=== PATIENT | female | born 1945 | race Caucasian/White ===

== ENCOUNTER 2018-12-03 13:41 | Outpatient (CLI) | payer MEDICARE | END 2018-12-03 23:59 | disposition home or self-care (01) | LOC: CARD 13:41 | PROVIDERS: ATTEND Internal Medicine Critical Care Medicine | DX: M35.02 Sjogren syndrome with lung involvement (principal); Z88.1 Allergy status to other antibiotic agents | CPT/HCPCS: 94060; 94726; 94729 ==

== ENCOUNTER 2019-03-05 16:16 | Inpatient (IN) | payer MEDICARE ==
[~2019-03-05] VITALS: Ht 144.8 cm; Wt 52.9 kg
--- NOTE | 2019-03-05 16:40 | NUR ---
FIRST CONTACT WITH PT. PT C/O "NON HEALING WOUND ON LEFT DE SOUZA". PT REPORTS CULTURE IS "STAPH", STATES "NOT MRSA". PT WAS BEING TRX'D BY [facility]. PT SENT BY PCP. PT HAS HX OF CHOGRIN'S AND HAS BEEN TREATED WITH STEROIDS FOR A LONG TIME. PT'S AOX4. RESPS EVEN AND UNLABORED. BP/SPO2 MONITORS IN PLACE. CALL LIGHT WITHIN REACH.
[2019-03-05 17:29] LABS: BASOPHILS # (AUTO) 0.01 x10^3/uL (0-0.1); BASOPHILS % (AUTO) 0 % (0-1); EOSINOPHILS # (AUTO) 0.01 x10^3/uL (0-0.4); EOSINOPHILS % (AUTO) 0 % (1-7); LYMPHOCYTES # (AUTO) 0.54 x10^3/uL (1-3.4); LYMPHOCYTES % (AUTO) 13 % (22-44); MD NO; MEAN CORPUSCULAR HEMOGLOBIN 33.8 pg (27.0-34.8); MEAN CORPUSCULAR HGB CONC 33.5 g/dL (32.4-35.8); MEAN CORPUSCULAR VOLUME 100.8 fL (80-100); MEAN PLATELET VOLUME 6.7 fL (7.4-10.4); MONOCYTES # (AUTO) 0.65 x10^3/uL (0.2-0.8); MONOCYTES % (AUTO) 16 % (2-9); NEUTROPHILS # (AUTO) 2.95 x10^3/uL (1.8-6.8); NEUTROPHILS % (AUTO) 71 % (42-75); PLATELET COUNT 320 x10^3/uL (130-400); RED BLOOD COUNT 3.78 x10^6/uL (3.82-5.3); RED CELL DISTRIBUTION WIDTH 13.3 % (9.6-15.2)
[2019-03-05] MEDS ORDERED: VANCOMYCIN PMX 1GM/200ML 200 ML IV ONE (17:30)
[2019-03-05] MEDS ORDERED: VANCOMYCIN PER PHARMACY MC ONE (17:30)
--- NOTE | 2019-03-05 17:30 | NUR ---
EDMD OK'D TO GIVE SOME WATER. WATER GIVEN AT THIS TIME.
--- NOTE | 2019-03-05 17:35 | NUR ---
TASK RN: OCTAVIO INITIATED. NO BC OKAY PER ERP.
[2019-03-05 17:36] LABS: ALBUMIN 3.7 g/dL (3.4-5.0); ANION GAP 9 mmol/L (5-15); CALCIUM 8.8 mg/dL (8.5-10.1); CHLORIDE 104 mmol/L (98-107); CREATININE 0.73 mg/dL (0.55-1.02)
--- NOTE | 2019-03-05 17:43 | NUR ---
WARM BLANKET GIVEN AT THIS TIME. VANCO INFUSING AT THIS TIME.
--- NOTE | 2019-03-05 18:23 | NUR ---
HOSPITALIST AT BEDSIDE TO EVALUATE AT THIS TIME.
--- NOTE | 2019-03-05 18:47 | NUR ---
report given to zaina sheppard. all qeustions answered.
[2019-03-05] MEDS ORDERED: PRED5POW8 PO (18:52)
[2019-03-05] MEDS ORDERED: AZAT50TA9 PO (18:53)
[2019-03-05] MEDS ORDERED: SULF1TAB23 PO (18:54)
[2019-03-05] MEDS ORDERED: OXYC5CAP2 PO (18:55)
[2019-03-05] MEDS ORDERED: POLYETHYLENE GLYCOL 17 GM PACKET PO PRN (19:00)
[2019-03-05] MEDS ORDERED: ONDANSETRON ODT 4 MG PO PRN (19:00)
[2019-03-05] MEDS ORDERED: ACETAMINOPHEN 325 MG TABLET PO PRN (19:00)
[2019-03-05] MEDS ORDERED: VANCOMYCIN PER PHARMACY MC PRN (19:00)
[2019-03-05] MEDS ORDERED: BISACODYL 10 MG SUPP PR PRN (19:00)
[2019-03-05] MEDS ORDERED: PHARMACOKINETIC MONITORING MC PRN (19:30)
[2019-03-05 20:30] VITALS: BP 118/75
[2019-03-05] MEDS: HEPARIN 5,000 UNITS/ML, 1ML SQ SCH (22:15)
[2019-03-05] MEDS: OXYcodone/APAP 5/325MG TABLET PO PRN (22:30)
[2019-03-05 22:33] VITALS: BP 118/75
[2019-03-05] MEDS ORDERED: FLUCONAZOLE 100 MG TABLET PO ONE (23:30)
[2019-03-06 03:14] VITALS: BP 118/69
[2019-03-06] MEDS: OXYcodone/APAP 5/325MG TABLET PO PRN ×5 (04:29→21:59)
[2019-03-06 04:53] LABS: BASOPHILS # (AUTO) 0.01 x10^3/uL (0-0.1); BASOPHILS % (AUTO) 1 % (0-1); EOSINOPHILS # (AUTO) 0.03 x10^3/uL (0-0.4); EOSINOPHILS % (AUTO) 1 % (1-7); LYMPHOCYTES # (AUTO) 0.68 x10^3/uL (1-3.4); LYMPHOCYTES % (AUTO) 22 % (22-44); MD NO; MEAN CORPUSCULAR HEMOGLOBIN 33.6 pg (27.0-34.8); MEAN CORPUSCULAR HGB CONC 33.6 g/dL (32.4-35.8); MEAN PLATELET VOLUME 6.7 fL (7.4-10.4); MONOCYTES # (AUTO) 0.51 x10^3/uL (0.2-0.8); MONOCYTES % (AUTO) 17 % (2-9); NEUTROPHILS # (AUTO) 1.82 x10^3/uL (1.8-6.8); NEUTROPHILS % (AUTO) 59 % (42-75); PLATELET COUNT 282 x10^3/uL (130-400); RED BLOOD COUNT 3.47 x10^6/uL (3.82-5.3); RED CELL DISTRIBUTION WIDTH 13.4 % (9.6-15.2)
[2019-03-06 05:00] LABS: ALBUMIN 3.2 g/dL (3.4-5.0); ANION GAP 5 mmol/L (5-15); CALCIUM 8.6 mg/dL (8.5-10.1); CHLORIDE 106 mmol/L (98-107)
[2019-03-06 05:04] LABS: ALANINE AMINOTRANSFERASE 20 U/L (12-78); ALKALINE PHOSPHATASE 93 U/L (45-117); BILIRUBIN,TOTAL 0.2 mg/dL (0.2-1.0); CREATININE 0.63 mg/dL (0.55-1.02); TOTAL PROTEIN 6.5 g/dL (6.4-8.2)
[2019-03-06] MEDS: HEPARIN 5,000 UNITS/ML, 1ML SQ SCH ×3 (05:56→22:02)
[2019-03-06] MEDS ORDERED: GADOTERATE 7.5 MMOL/15 ML SYR ONE (08:18)
[2019-03-06] MEDS ORDERED: SULF-169 PO (08:38)
[2019-03-06] MEDS ORDERED: DOXY100T PO (08:38)
[2019-03-06] MEDS ORDERED: PRED1TAB19 PO (08:38)
[2019-03-06] MEDS: SENNA/DOCUSATE TABLET PO SCH (08:39)
[2019-03-06 08:42] VITALS: BP 111/82
[2019-03-06 14:12] VITALS: BP 108/72
[2019-03-06] MEDS: VANCOMYCIN PMX 1GM/200ML 200 ML IV SCH (16:26)
[2019-03-06 19:46] VITALS: BP 111/70
[2019-03-06] MEDS: AZATHIOPRINE 50 MG TABLET PO SCH (20:59)
[2019-03-06] MEDS: DOXYCYCLINE 100MG TABLET PO SCH (20:59)
[2019-03-07 01:45] VITALS: BP 105/67
[2019-03-07 05:26] LABS: BASOPHILS # (AUTO) 0.02 x10^3/uL (0-0.1); BASOPHILS % (AUTO) 0 % (0-1); EOSINOPHILS # (AUTO) 0.05 x10^3/uL (0-0.4); EOSINOPHILS % (AUTO) 1 % (1-7); LYMPHOCYTES # (AUTO) 0.75 x10^3/uL (1-3.4); LYMPHOCYTES % (AUTO) 21 % (22-44); MD NO; MEAN CORPUSCULAR HEMOGLOBIN 33.8 pg (27.0-34.8); MEAN CORPUSCULAR HGB CONC 33.7 g/dL (32.4-35.8); MEAN CORPUSCULAR VOLUME 100.3 fL (80-100); MEAN PLATELET VOLUME 6.7 fL (7.4-10.4); MONOCYTES # (AUTO) 0.58 x10^3/uL (0.2-0.8); MONOCYTES % (AUTO) 16 % (2-9); NEUTROPHILS # (AUTO) 2.28 x10^3/uL (1.8-6.8); NEUTROPHILS % (AUTO) 62 % (42-75); PLATELET COUNT 298 x10^3/uL (130-400); RED BLOOD COUNT 3.78 x10^6/uL (3.82-5.3); RED CELL DISTRIBUTION WIDTH 13.3 % (9.6-15.2)
[2019-03-07 05:37] LABS: ANION GAP 8 mmol/L (5-15); CALCIUM 8.8 mg/dL (8.5-10.1); CHLORIDE 104 mmol/L (98-107)
[2019-03-07 05:47] LABS: CREATININE 0.69 mg/dL (0.55-1.02)
[2019-03-07] MEDS: HEPARIN 5,000 UNITS/ML, 1ML SQ SCH ×4 (06:09→22:06)
[2019-03-07 06:20] VITALS: BP 116/75
[2019-03-07] MEDS: OXYcodone/APAP 5/325MG TABLET PO PRN ×3 (06:23→16:42)
[2019-03-07] MEDS: AZATHIOPRINE 50 MG TABLET PO SCH ×2 (10:12→20:08)
[2019-03-07] MEDS: DOXYCYCLINE 100MG TABLET PO SCH (10:12)
[2019-03-07] MEDS: SENNA/DOCUSATE TABLET PO SCH (10:13)
[2019-03-07 13:13] VITALS: BP 122/75
[2019-03-07] MEDS: VANCOMYCIN PMX 1GM/200ML 200 ML IV SCH (17:33)
[2019-03-07] MEDS: SULFAMETH./TRIMETHOPRIM DS 800MG/160MG TABLET PO SCH (17:33)
[2019-03-07 19:16] VITALS: BP 102/62
[2019-03-07] MEDS: OXYcodone IR 5MG TABLET PO PRN (22:06)
[2019-03-08 02:00] VITALS: BP 118/76
[2019-03-08] MEDS: OXYcodone IR 5MG TABLET PO PRN ×2 (03:13→12:25)
[2019-03-08 05:15] LABS: BASOPHILS # (AUTO) 0.03 x10^3/uL (0-0.1); BASOPHILS % (AUTO) 1 % (0-1); EOSINOPHILS # (AUTO) 0.05 x10^3/uL (0-0.4); EOSINOPHILS % (AUTO) 1 % (1-7); LYMPHOCYTES # (AUTO) 0.63 x10^3/uL (1-3.4); LYMPHOCYTES % (AUTO) 17 % (22-44); MD NO; MEAN CORPUSCULAR HEMOGLOBIN 33.3 pg (27.0-34.8); MEAN CORPUSCULAR HGB CONC 33.3 g/dL (32.4-35.8); MEAN PLATELET VOLUME 6.7 fL (7.4-10.4); MONOCYTES # (AUTO) 0.56 x10^3/uL (0.2-0.8); MONOCYTES % (AUTO) 15 % (2-9); NEUTROPHILS # (AUTO) 2.43 x10^3/uL (1.8-6.8); NEUTROPHILS % (AUTO) 66 % (42-75); PLATELET COUNT 285 x10^3/uL (130-400); RED BLOOD COUNT 3.64 x10^6/uL (3.82-5.3); RED CELL DISTRIBUTION WIDTH 13.2 % (9.6-15.2)
[2019-03-08 05:26] LABS: ANION GAP 7 mmol/L (5-15); CALCIUM 8.6 mg/dL (8.5-10.1); CHLORIDE 104 mmol/L (98-107)
[2019-03-08 05:28] LABS: CREATININE 0.63 mg/dL (0.55-1.02)
[2019-03-08] MEDS: HEPARIN 5,000 UNITS/ML, 1ML SQ SCH ×2 (05:52→20:14)
[2019-03-08 08:00] VITALS: BP 127/84
[2019-03-08] MEDS: AZATHIOPRINE 50 MG TABLET PO SCH ×2 (09:47→20:14)
[2019-03-08] MEDS: SENNA/DOCUSATE TABLET PO SCH (09:47)
[2019-03-08 13:30] VITALS: BP 121/76
[2019-03-08] MEDS: VANCOMYCIN PMX 1GM/200ML 200 ML IV SCH (17:48)
[2019-03-08] MEDS: OXYcodone/APAP 5/325MG TABLET PO PRN (20:14)
[2019-03-08 20:44] VITALS: BP 126/79
[2019-03-09 03:59] VITALS: BP 136/79
[2019-03-09] MEDS: HEPARIN 5,000 UNITS/ML, 1ML SQ SCH ×3 (05:57→21:16)
[2019-03-09 06:46] VITALS: BP 112/56
[2019-03-09] MEDS: SULFAMETH./TRIMETHOPRIM DS 800MG/160MG TABLET PO SCH (08:41)
[2019-03-09] MEDS: AZATHIOPRINE 50 MG TABLET PO SCH ×2 (08:41→21:16)
[2019-03-09] MEDS: SENNA/DOCUSATE TABLET PO SCH (08:42)
[2019-03-09] MEDS: VANCOMYCIN PMX 1GM/200ML 200 ML IV SCH (12:00)
[2019-03-09] MEDS: OXYcodone IR 5MG TABLET PO PRN ×2 (13:54→21:16)
[2019-03-09 14:00] VITALS: BP 134/67
[2019-03-09 19:37] VITALS: BP 110/75
[2019-03-10 01:24] VITALS: BP 130/80
[2019-03-10] MEDS: HEPARIN 5,000 UNITS/ML, 1ML SQ SCH ×3 (05:57→22:55)
[2019-03-10] MEDS: VANCOMYCIN PMX 1GM/200ML 200 ML IV SCH (05:57)
[2019-03-10 08:00] VITALS: BP 107/70
[2019-03-10] MEDS: SENNA/DOCUSATE TABLET PO SCH (08:59)
[2019-03-10] MEDS: AZATHIOPRINE 50 MG TABLET PO SCH ×2 (08:59→20:13)
[2019-03-10] MEDS: OXYcodone/APAP 5/325MG TABLET PO PRN ×3 (08:59→20:13)
[2019-03-10 11:23] LABS: BASOPHILS # (AUTO) 0.02 x10^3/uL (0-0.1); BASOPHILS % (AUTO) 0 % (0-1); EOSINOPHILS # (AUTO) 0.03 x10^3/uL (0-0.4); EOSINOPHILS % (AUTO) 1 % (1-7); LYMPHOCYTES # (AUTO) 0.62 x10^3/uL (1-3.4); LYMPHOCYTES % (AUTO) 12 % (22-44); MD NO; MEAN CORPUSCULAR HEMOGLOBIN 34.2 pg (27.0-34.8); MEAN CORPUSCULAR HGB CONC 33.9 g/dL (32.4-35.8); MEAN CORPUSCULAR VOLUME 100.9 fL (80-100); MEAN PLATELET VOLUME 6.9 fL (7.4-10.4); MONOCYTES # (AUTO) 0.74 x10^3/uL (0.2-0.8); MONOCYTES % (AUTO) 14 % (2-9); NEUTROPHILS # (AUTO) 3.96 x10^3/uL (1.8-6.8); NEUTROPHILS % (AUTO) 74 % (42-75); PLATELET COUNT 343 x10^3/uL (130-400); RED BLOOD COUNT 3.97 x10^6/uL (3.82-5.3); RED CELL DISTRIBUTION WIDTH 13.3 % (9.6-15.2)
[2019-03-10 11:34] LABS: ALANINE AMINOTRANSFERASE 37 U/L (12-78); ALBUMIN 3.8 g/dL (3.4-5.0); ANION GAP 8 mmol/L (5-15); C-REACTIVE PROTEIN, QUANT 0.45 mg/dL (0.02-0.49); CALCIUM 8.8 mg/dL (8.5-10.1); CHLORIDE 102 mmol/L (98-107); CREATININE 0.63 mg/dL (0.55-1.02)
[2019-03-10 11:36] LABS: ALKALINE PHOSPHATASE 111 U/L (45-117); BILIRUBIN,TOTAL 0.3 mg/dL (0.2-1.0)
[2019-03-10] MEDS: OXYcodone IR 5MG TABLET PO PRN (13:49)
[2019-03-10 14:00] VITALS: BP 108/56
[2019-03-10 19:58] VITALS: BP 119/71
[2019-03-11] MEDS: VANCOMYCIN PMX 1GM/200ML 200 ML IV SCH ×2 (00:20→18:22)
[2019-03-11 00:59] VITALS: BP 103/67
[2019-03-11] MEDS: HEPARIN 5,000 UNITS/ML, 1ML SQ SCH ×3 (05:34→23:39)
[2019-03-11 06:09] LABS: BASOPHILS # (AUTO) 0.02 x10^3/uL (0-0.1); BASOPHILS % (AUTO) 1 % (0-1); CHLORIDE 105 mmol/L (98-107); EOSINOPHILS # (AUTO) 0.07 x10^3/uL (0-0.4); EOSINOPHILS % (AUTO) 2 % (1-7); LYMPHOCYTES # (AUTO) 0.48 x10^3/uL (1-3.4); LYMPHOCYTES % (AUTO) 15 % (22-44); MD NO; MEAN CORPUSCULAR HEMOGLOBIN 33.8 pg (27.0-34.8); MEAN CORPUSCULAR HGB CONC 33.5 g/dL (32.4-35.8); MEAN CORPUSCULAR VOLUME 100.8 fL (80-100); MONOCYTES # (AUTO) 0.57 x10^3/uL (0.2-0.8); MONOCYTES % (AUTO) 17 % (2-9); NEUTROPHILS # (AUTO) 2.18 x10^3/uL (1.8-6.8); NEUTROPHILS % (AUTO) 66 % (42-75); PLATELET COUNT 284 x10^3/uL (130-400); RED BLOOD COUNT 3.47 x10^6/uL (3.82-5.3); RED CELL DISTRIBUTION WIDTH 13.5 % (9.6-15.2)
[2019-03-11 06:19] LABS: ALANINE AMINOTRANSFERASE 37 U/L (12-78); ALBUMIN 3.3 g/dL (3.4-5.0); ALKALINE PHOSPHATASE 94 U/L (45-117); ANION GAP 7 mmol/L (5-15); BILIRUBIN,TOTAL 0.2 mg/dL (0.2-1.0); CALCIUM 8.8 mg/dL (8.5-10.1); CREATININE 0.55 mg/dL (0.55-1.02); TOTAL PROTEIN 6.6 g/dL (6.4-8.2)
[2019-03-11] MEDS: SENNA/DOCUSATE TABLET PO SCH (09:02)
[2019-03-11] MEDS: SULFAMETH./TRIMETHOPRIM DS 800MG/160MG TABLET PO SCH (09:03)
[2019-03-11] MEDS: AZATHIOPRINE 50 MG TABLET PO SCH ×2 (09:03→20:14)
[2019-03-11 11:00] VITALS: BP 135/82
[2019-03-11] MEDS: OXYcodone IR 5MG TABLET PO PRN ×2 (13:01→20:14)
[2019-03-11 14:45] VITALS: BP 108/78
[2019-03-11 19:49] VITALS: BP 112/82
[2019-03-12 02:00] VITALS: BP 117/70
[2019-03-12 08:13] VITALS: BP 131/79
[2019-03-12] MEDS: HEPARIN 5,000 UNITS/ML, 1ML SQ SCH ×3 (09:13→23:28)
[2019-03-12] MEDS: SENNA/DOCUSATE TABLET PO SCH (09:15)
[2019-03-12] MEDS: AZATHIOPRINE 50 MG TABLET PO SCH ×2 (09:15→20:07)
[2019-03-12] MEDS: VANCOMYCIN PMX 1GM/200ML 200 ML IV SCH (12:50)
[2019-03-12] MEDS: OXYcodone/APAP 5/325MG TABLET PO PRN ×2 (13:29→22:57)
[2019-03-12 15:07] VITALS: BP 115/74
[2019-03-12 18:48] VITALS: BP 121/77
[2019-03-12] MEDS: OXYcodone IR 5MG TABLET PO PRN (20:08)
[2019-03-13 02:42] VITALS: BP 130/85
[2019-03-13] MEDS: OXYcodone IR 5MG TABLET PO PRN ×2 (04:14→20:12)
[2019-03-13] MEDS: VANCOMYCIN PMX 1GM/200ML 200 ML IV SCH (06:17)
[2019-03-13 06:22] LABS: BASOPHILS # (AUTO) 0.03 x10^3/uL (0-0.1); BASOPHILS % (AUTO) 1 % (0-1); EOSINOPHILS # (AUTO) 0.06 x10^3/uL (0-0.4); EOSINOPHILS % (AUTO) 2 % (1-7); LYMPHOCYTES % (AUTO) 16 % (22-44); MD NO; MEAN CORPUSCULAR HEMOGLOBIN 33.3 pg (27.0-34.8); MEAN CORPUSCULAR HGB CONC 33.5 g/dL (32.4-35.8); MEAN CORPUSCULAR VOLUME 99.6 fL (80-100); MEAN PLATELET VOLUME 6.1 fL (7.4-10.4); MONOCYTES # (AUTO) 0.62 x10^3/uL (0.2-0.8); MONOCYTES % (AUTO) 16 % (2-9); NEUTROPHILS # (AUTO) 2.48 x10^3/uL (1.8-6.8); NEUTROPHILS % (AUTO) 65 % (42-75); PLATELET COUNT 301 x10^3/uL (130-400); RED BLOOD COUNT 3.69 x10^6/uL (3.82-5.3); RED CELL DISTRIBUTION WIDTH 13.7 % (9.6-15.2)
[2019-03-13 06:33] LABS: CHLORIDE 104 mmol/L (98-107)
[2019-03-13 06:43] LABS: ALANINE AMINOTRANSFERASE 42 U/L (12-78); ALBUMIN 3.5 g/dL (3.4-5.0); ALKALINE PHOSPHATASE 96 U/L (45-117); ANION GAP 5 mmol/L (5-15); BILIRUBIN,TOTAL 0.2 mg/dL (0.2-1.0); CALCIUM 9.1 mg/dL (8.5-10.1); TOTAL PROTEIN 7.3 g/dL (6.4-8.2)
[2019-03-13 07:27] VITALS: BP 134/80
[2019-03-13] MEDS: SULFAMETH./TRIMETHOPRIM DS 800MG/160MG TABLET PO SCH (08:47)
[2019-03-13] MEDS: AZATHIOPRINE 50 MG TABLET PO SCH ×2 (08:47→20:11)
[2019-03-13] MEDS: SENNA/DOCUSATE TABLET PO SCH (08:48)
[2019-03-13] MEDS: HEPARIN 5,000 UNITS/ML, 1ML SQ SCH (08:49)
[2019-03-13] MEDS: OXYcodone/APAP 5/325MG TABLET PO PRN (08:54)
[2019-03-13] MEDS ORDERED: FLU VACC QS2019-20 36MOS UP/PF 0.5 ML IM-VACC ONE (10:30)
[2019-03-13] MEDS ORDERED: DAPTOMYCIN IV SCH (10:30)
[2019-03-13] MEDS ORDERED: SODIUM CHLORIDE 0.9% IV SCH (10:30)
[2019-03-13 12:27] LABS: INTERNATIONAL NORMALIZED RATIO 0.94 (0.93-1.1); PROTHROMBIN TIME 9.9 Seconds (9.6-11.5)
[2019-03-13 14:20] VITALS: BP 129/76
[2019-03-13] MEDS: ENOXAPARIN 40 MG/0.4 ML SQ SCH (17:31)
[2019-03-13 19:05] VITALS: BP 115/77
[2019-03-14 01:57] VITALS: BP 121/78
[2019-03-14] MEDS: OXYcodone IR 5MG TABLET PO PRN ×2 (02:07→11:14)
[2019-03-14 08:30] VITALS: BP 126/74
[2019-03-14] MEDS: SENNA/DOCUSATE TABLET PO SCH (09:54)
[2019-03-14] MEDS: AZATHIOPRINE 50 MG TABLET PO SCH (09:55)
[2019-03-14 16:00] VITALS: BP 121/78
[2019-03-14] MEDS: ENOXAPARIN 40 MG/0.4 ML SQ SCH (16:18)
[2019-03-14] MEDS: OXYcodone/APAP 5/325MG TABLET PO PRN (16:55)
[2019-03-14] MEDS ORDERED: DAPTOMYCIN 300 MG in SODIUM CHLORIDE 0.9% 100 ML IV SCH (17:30)
[2019-03-14] MEDS ORDERED: DAPT500V6 IV (17:35)
[2019-03-14] MEDS ORDERED: POLY17PO5 PO (17:35)
[2019-03-14] MEDS ORDERED: ONDA4TAB13 PO (17:35)
[2019-03-14] MEDS ORDERED: OXYC5CAP2 PO (17:35)
== END 2019-03-14 18:56 | disposition home or self-care (01) | DRG 603 ==
LOC: ED 18:00 → EDIP 18:01 → ED 18:14 → 3N 19:09
PROVIDERS: ADMIT Internal Medicine; ATTEND Internal Medicine
PROC: 02HV33Z Insertion of Infusion Device into Superior Vena Cava, Percutaneous Approach (ICD-10-PCS; principal; 2019-03-14)
PROC: B548ZZA Ultrasonography of Superior Vena Cava, Guidance (ICD-10-PCS; 2019-03-14)
DX: L03.115 Cellulitis of right lower limb (principal); L97.919 Non-pressure chronic ulcer of unspecified part of right lower leg with unspecified severity; E87.1 Hypo-osmolality and hyponatremia; J84.9 Interstitial pulmonary disease, unspecified; D84.9 Immunodeficiency, unspecified; Z16.24 Resistance to multiple antibiotics; D75.89 Other specified diseases of blood and blood-forming organs; Z96.643 Presence of artificial hip joint, bilateral; G60.8 Other hereditary and idiopathic neuropathies; M06.9 Rheumatoid arthritis, unspecified; M10.9 Gout, unspecified; M35.00 Sjogren syndrome, unspecified; Z79.52 Long term (current) use of systemic steroids; Z80.1 Family history of malignant neoplasm of trachea, bronchus and lung; Z88.8 Allergy status to other drugs, medicaments and biological substances; Z86.14 Personal history of Methicillin resistant Staphylococcus aureus infection
CPT/HCPCS: 36415; 36573; 71046; 80048; 80053; 80202; 82040; 82607; 83735; 84100; 84145; 84443; 85025; 85610; 85651; 86140; 86361; 86430; 87070; 87205; 90686; 93922; 96374; G0378; J0878; J1644; J1650; J3370; J7500; J7512; A9575; C1751

== ENCOUNTER 2019-03-19 09:52 | Outpatient (CLI) | payer MEDICARE ==
[~2019-03-19 09:52] MED LIST: AZAT50TA9 PO; DAPT500V6 IV; DOXY100T PO; ONDA4TAB13 PO; OXYC5CAP2 PO; POLY17PO5 PO; PRED1TAB19 PO; PRED5POW8 PO; SULF-169 PO; SULF1TAB23 PO
== END 2019-03-19 23:59 | disposition home or self-care (01) ==
LOC: WOUND 09:52
PROVIDERS: ATTEND Podiatrist Foot & Ankle Surgery
DX: L97.812 Non-pressure chronic ulcer of other part of right lower leg with fat layer exposed (principal); L03.115 Cellulitis of right lower limb; F41.9 Anxiety disorder, unspecified
CPT/HCPCS: 11042; 11045; G0463; 97597; 97598

== ENCOUNTER 2019-03-26 09:23 | Outpatient (CLI) | payer MEDICARE | END 2019-03-26 23:59 | disposition home or self-care (01) | LOC: WOUND 09:23 | PROVIDERS: ATTEND Nurse Practitioner Family | DX: L97.812 Non-pressure chronic ulcer of other part of right lower leg with fat layer exposed (principal); L03.115 Cellulitis of right lower limb; F41.9 Anxiety disorder, unspecified | CPT/HCPCS: 97597 ==

== ENCOUNTER → 2019-04-02 | Outpatient (CLI) | payer MEDICARE | END | disposition home or self-care (01) | LOC: WOUND 13:23 | PROVIDERS: ATTEND Nurse Practitioner Family | DX: L98.492 Non-pressure chronic ulcer of skin of other sites with fat layer exposed (principal); L03.115 Cellulitis of right lower limb; F41.9 Anxiety disorder, unspecified | CPT/HCPCS: 97597 ==

== ENCOUNTER 2019-04-09 13:37 | Outpatient (CLI) | payer MEDICARE | END 2019-04-09 23:59 | disposition home or self-care (01) | LOC: WOUND 13:37 | PROVIDERS: ATTEND Nurse Practitioner Family | DX: L98.492 Non-pressure chronic ulcer of skin of other sites with fat layer exposed (principal); L03.115 Cellulitis of right lower limb; F41.9 Anxiety disorder, unspecified | CPT/HCPCS: 97597 ==

== ENCOUNTER 2019-04-16 11:00 | Outpatient (CLI) | payer MEDICARE | END 2019-04-16 23:59 | disposition home or self-care (01) | LOC: WOUND 11:00 | PROVIDERS: ATTEND Nurse Practitioner Family | DX: L98.492 Non-pressure chronic ulcer of skin of other sites with fat layer exposed (principal); L03.115 Cellulitis of right lower limb; F41.9 Anxiety disorder, unspecified; M10.9 Gout, unspecified; G60.8 Other hereditary and idiopathic neuropathies; M06.9 Rheumatoid arthritis, unspecified; Z86.14 Personal history of Methicillin resistant Staphylococcus aureus infection; Z96.643 Presence of artificial hip joint, bilateral; Z79.52 Long term (current) use of systemic steroids; Z88.8 Allergy status to other drugs, medicaments and biological substances | CPT/HCPCS: 17250; 97597 ==

== ENCOUNTER → 2019-04-23 | Outpatient (CLI) | payer MEDICARE | END | disposition home or self-care (01) | LOC: WOUND 10:57 | PROVIDERS: ATTEND Nurse Practitioner Family | DX: L98.492 Non-pressure chronic ulcer of skin of other sites with fat layer exposed (principal); L03.115 Cellulitis of right lower limb; F41.9 Anxiety disorder, unspecified | CPT/HCPCS: 97597 ==

== ENCOUNTER → 2019-05-07 | Outpatient (CLI) | payer MEDICARE | END | disposition home or self-care (01) | LOC: WOUND 13:27 | PROVIDERS: ATTEND Nurse Practitioner Family | DX: L98.492 Non-pressure chronic ulcer of skin of other sites with fat layer exposed (principal); L03.115 Cellulitis of right lower limb; F41.9 Anxiety disorder, unspecified | CPT/HCPCS: 17250 ==

== ENCOUNTER 2019-05-14 10:43 | Outpatient (CLI) | payer MEDICARE | END 2019-05-14 23:59 | disposition home or self-care (01) | LOC: WOUND 10:43 | PROVIDERS: ATTEND Internal Medicine Infectious Disease | DX: L98.492 Non-pressure chronic ulcer of skin of other sites with fat layer exposed (principal); L03.115 Cellulitis of right lower limb; F41.9 Anxiety disorder, unspecified | CPT/HCPCS: 17250 ==

== ENCOUNTER → 2019-05-28 | Outpatient (CLI) | payer MEDICARE | END | disposition home or self-care (01) | LOC: WOUND 12:59 | PROVIDERS: ATTEND Nurse Practitioner Family | DX: L98.492 Non-pressure chronic ulcer of skin of other sites with fat layer exposed (principal); L03.115 Cellulitis of right lower limb; F41.9 Anxiety disorder, unspecified | CPT/HCPCS: 97597 ==

== ENCOUNTER → 2019-06-04 | Outpatient (CLI) | payer MEDICARE | END | disposition home or self-care (01) | LOC: WOUND 13:05 | PROVIDERS: ATTEND Nurse Practitioner Family | DX: L98.492 Non-pressure chronic ulcer of skin of other sites with fat layer exposed (principal); L03.115 Cellulitis of right lower limb; F41.9 Anxiety disorder, unspecified | CPT/HCPCS: 97597 ==

== ENCOUNTER 2019-06-11 10:55 | Outpatient (CLI) | payer MEDICARE | END 2019-06-11 23:59 | disposition home or self-care (01) | LOC: WOUND 10:55 | PROVIDERS: ATTEND Nurse Practitioner Family | DX: L03.115 Cellulitis of right lower limb (principal); M35.09 Sjogren syndrome with other organ involvement; J84.9 Interstitial pulmonary disease, unspecified; F41.9 Anxiety disorder, unspecified; Z92.25 Personal history of immunosuppression therapy | CPT/HCPCS: G0463 ==